=== PATIENT | female | born 1980 | race Caucasian/White ===

== ENCOUNTER 2019-05-12 14:15 | Emergency (ER) | payer MEDICAID, OTHER ==
[~2019-05-12] VITALS: Ht 160 cm; Wt 68.0 kg
[2019-05-12] MEDS ORDERED: methylPREDNISolone 125 MG (Solu-MEDROL) VIAL IVP STA (14:27)
[2019-05-12] MEDS ORDERED: FAMOTIDINE 20MG/2ML IV (PEPCID) IVP STA (14:27)
[2019-05-12] MEDS ORDERED: diphenhydrAMINE 50 MG/ML INJ (BENADRYL) IVP STA (14:27)
[2019-05-12] MEDS ORDERED: NS IV 1000 ML 1,000 ML IV STA (14:28)
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
[2019-05-12 15:40] VITALS: BP 101/61
[2019-05-12] MEDS ORDERED: PRD20T PO (15:40)
== END 2019-05-12 15:42 | disposition home or self-care (01) ==
LOC: EDUNIT# 14:15 → ER FS 14:16
DX: T78.40XA Allergy, unspecified, initial encounter (principal); Z88.0 Allergy status to penicillin; Z88.1 Allergy status to other antibiotic agents; Z88.5 Allergy status to narcotic agent
CPT/HCPCS: 96374; 96375; 99282